=== PATIENT | female | born 1975 | race Hispanic/Latino ===

== ENCOUNTER 2022-11-01 13:37 | Observation (INO) | payer SELFPAY ==
[2022-11-01 14:25] VITALS: BMI 27.9
[2022-11-01] MEDS: Ferrous Sulfate 325 MG TAB PO SCH (17:20)
[2022-11-01] MEDS ORDERED: Zolpidem Tartrate 5 MG TAB PO PRN (18:27)
[2022-11-01] MEDS ORDERED: Acetaminophen 500 MG TAB PO PRN (19:16)
[2022-11-01 20:33] LABS: Hemoglobin 6.1 g/dL (12.0-15.5); Mean Corpuscular HGB CONC 29.8 g/dL (32.0-36.0); Mean Corpuscular Hemoglobin 21.9 pg (27.0-33.0); Mean Corpuscular Volume 73.5 fl (81.6-98.3); Mean Platelet Volume 9.8 fl (7.4-10.4); Platelet Count 215 10x3/uL (150-450); RBC Distribution Width 22.5 % (11.5-14.5); Red Blood Cell (RBC) Count 2.79 10x6/uL (3.90-5.03); White Blood Cell (WBC) Count 5.3 10x3/uL (3.5-10.5)
[2022-11-02] MEDS: Ferrous Sulfate 325 MG TAB PO SCH (08:34)
[2022-11-02 08:43] LABS: Hemoglobin 6.5 g/dL (12.0-15.5); Mean Corpuscular HGB CONC 29.8 g/dL (32.0-36.0); Mean Corpuscular Hemoglobin 22.8 pg (27.0-33.0); Mean Corpuscular Volume 76.5 fl (81.6-98.3); Mean Platelet Volume 10.7 fl (7.4-10.4); Platelet Count 197 10x3/uL (150-450); RBC Distribution Width 22.5 % (11.5-14.5); Red Blood Cell (RBC) Count 2.85 10x6/uL (3.90-5.03); White Blood Cell (WBC) Count 3.8 10x3/uL (3.5-10.5)
[2022-11-02 08:48] VITALS: BP 105/57; TEMP 98.1
== END 2022-11-02 10:10 | disposition home or self-care (01) ==
LOC: INTOOBSV 13:37 → CSHPED 13:37
PROVIDERS: ADMIT Obstetrics & Gynecology; ATTEND Obstetrics & Gynecology
DX: N92.0 Excessive and frequent menstruation with regular cycle (principal); D64.9 Anemia, unspecified; R00.0 Tachycardia, unspecified; I95.9 Hypotension, unspecified; R53.1 Weakness; R42 Dizziness and giddiness
CPT/HCPCS: 36415; 85027; 86850; 86900; 86901; G0378; P9016